=== PATIENT | female | born 1955 | race African-American/Black ===

== ENCOUNTER 2019-06-15 05:19 | Emergency (ER) | payer MEDICARE, OTHER ==
[~2019-06-15] VITALS: Ht 170.2 cm; Wt 73.0 kg
[2019-06-15] MEDS ORDERED: ONDANSETRON HCL 4MG/2ML INJ IV ONE (06:30)
[2019-06-15 07:35] LABS: CHLORIDE 103 mEq/L (98-107)
[2019-06-15 07:39] LABS: ETHANOL BLOOD < 10 mg/dL
[2019-06-15 07:41] LABS: BASOPHILS % 0.9 % (0.0-2.0); EOSINOPHILS % 0.1 % (0.0-5.0); HEMOGLOBIN. 11.2 g/dL (12.0-16.0); MEAN CORPUSCULAR HEMOGLOBIN 28.8 pg (28.0-32.0); MEAN PLATELET VOLUME 7.8 fl (7.4-10.4); MONOCYTES % 3.7 % (2.0-8.0); NEUTROPHILS % 82.3 % (40.0-76.0); PLATELET 194 x1000/uL (130-400); RED BLOOD CELL COUNT 3.91 mill/uL (4.2-5.4); RED CELL DISTRIBUTION WIDTH 14.5 % (11.6-14.6)
[2019-06-15] MEDS ORDERED: HYDRALAZINE 20MG/ML VIAL IV PRN (08:45)
[2019-06-15 08:57] LABS: CLARITY URINE CLOUDY (CLEAR); COLOR URINE YELLOW (YELLOW); KETONES URINE NEGATIVE (NEGATIVE); LEUKOCYTE ESTERASE URINE NEGATIVE (NEGATIVE); NITRITE URINE NEGATIVE (NEGATIVE); OCCULT BLOOD URINE TRACE (NEGATIVE); PH URINE >=9.0 (4.5-8.0); PROTEIN URINE 2+ (NEGATIVE); SPECIFIC GRAVITY URINE 1.011 (1.005-1.030); UROBILINOGEN URINE 0.2 E.U./dL (0.2-1.0)
[2019-06-15 09:15] LABS: *AMPHETAMINES SCREEN URINE NEGATIVE (NEGATIVE); *BARBITURATES SCREEN URINE NEGATIVE (NEGATIVE); *BENZODIAZEPINES SCREEN URINE NEGATIVE (NEGATIVE); *COCAINE SCREEN URINE NEGATIVE (NEGATIVE); METHADONE URINE SCREEN NEGATIVE (NEGATIVE)
[2019-06-15 09:16] LABS: CANNABINOID URINE SCREEN NEGATIVE (NEGATIVE); OPIATES URINE SCREEN NEGATIVE (NEGATIVE); PHENCYCLIDINE URINE SCREEN NEGATIVE (NEGATIVE)
[2019-06-15] MEDS ORDERED: LEVOTHYROXINE SODIUM 100MCG TABLET PO SCH (09:45)
[2019-06-15] MEDS ORDERED: CLONIDINE 0.1MG TABLET PO PRN (10:00)
[2019-06-15] MEDS ORDERED: NITROGLYCERIN 0.4MG TABLET SL SL PRN (10:00)
[2019-06-15] MEDS ORDERED: ONDANSETRON HCL 4MG/2ML INJ IV PRN (10:00)
[2019-06-15] MEDS ORDERED: ACETAMINOPHEN 325MG TABLET PO PRN (10:00)
[2019-06-15] MEDS ORDERED: GUAIFENESIN 200MG/10ML SUGAR FREE UDC PO PRN (10:00)
[2019-06-15] MEDS ORDERED: IPRATROPIUM/ALBUTEROL 0.5-3(2.5)MG/3ML NEB INH PRN (10:00)
[2019-06-15] MEDS ORDERED: ENOXAPARIN 40MG/0.4ML SYR SUBCUT SCH (10:00)
[2019-06-15] MEDS ORDERED: DEXTROSE 50% WATER 50ML SYRINGE IV PRN (10:00)
[2019-06-15] MEDS ORDERED: DIPHENHYDRAMINE 50MG/ML VIAL IV PRN (10:00)
[2019-06-15] MEDS ORDERED: MAGNESIUM/ALUMINUM HYDROXIDE/SIMETHICONE 30ML UDC PO PRN (10:00)
[2019-06-15 10:38] LABS: FOLIC ACID (FOLATE) SERUM >20 ng/mL ng/mL (>5.38)
[2019-06-15 10:49] LABS: VITAMIN B12 SERUM 816 pg/mL (211-911)
[2019-06-15 11:20] VITALS: BP 166/79
[2019-06-15] MEDS ORDERED: SEVELAMER CARBONATE 800 MG TABLET PO SCH (13:00)
[2019-06-15] MEDS ORDERED: BLOOD SUGAR DIAGNOSTIC STRIP TEST SCH (13:00)
[2019-06-15] MEDS ORDERED: INSULIN LISPRO 100 UNITS/ML SUBCUT SCH (13:20)
[2019-06-15] MEDS ORDERED: FAMOTIDINE 20MG TABLET PO SCH (21:00)
[2019-06-15] MEDS ORDERED: METOPROLOL TARTRATE 25MG TABLET PO SCH (21:00)
[2019-06-16] MEDS ORDERED: LEVOTHYROXINE SODIUM 100MCG TABLET PO SCH (07:50)
[2019-06-16] MEDS ORDERED: FOLIC ACID/VITAMIN B COMP W-C TABLET PO SCH (09:00)
[2019-06-16] MEDS ORDERED: ASPIRIN 325MG EC TABLET PO SCH (09:00)
[2019-06-16] MEDS ORDERED: AMLODIPINE 10MG TABLET PO SCH (09:00)
== END 2019-06-15 11:27 | disposition short-term general hospital (02) ==
LOC: ER 05:19 → SUPCPDRO 09:49 → ER 11:27
DX: R42 Dizziness and giddiness (principal); I12.0 Hypertensive chronic kidney disease with stage 5 chronic kidney disease or end stage renal disease; N18.6 End stage renal disease; E03.9 Hypothyroidism, unspecified; Z99.2 Dependence on renal dialysis
CPT/HCPCS: 36415; 70450; 70551; 71045; 80053; 80061; 80305; 80320; 81003; 82607; 82746; 83036; 84443; 85025; 93005; 93970; 96374; 99285; J2405; G0480

== ENCOUNTER 2020-04-07 20:20 | Emergency (ER) | payer MEDICARE, OTHER ==
[~2020-04-07] VITALS: Ht 162.6 cm; Wt 74.0 kg
[2020-04-07] MEDS ORDERED: HYDROCODONE/ACETAMINOPHEN 5/325MG TABLET PO ONE (20:45)
[2020-04-07] MEDS ORDERED: METOPROLOL TARTRATE 25MG TABLET PO ONE (21:15)
[2020-04-07] MEDS ORDERED: SODIUM CHLORIDE 0.9% 1,000 ML IV ONE (22:39)
[2020-04-07] MEDS ORDERED: MORPHINE SULFATE 4 MG/ML CPJ (NOT FOR IM USE) IV STA (22:39)
[2020-04-07] MEDS ORDERED: ONDANSETRON HCL 4MG/2ML INJ IV STA (22:39)
[2020-04-07] MEDS ORDERED: ETOMIDATE 2MG/ML 10ML VIAL IV ONE (22:45)
[2020-04-07] MEDS ORDERED: MORPHINE SULFATE 4 MG/ML CPJ (NOT FOR IM USE) IV ONE (22:45)
[2020-04-07 23:10] LABS: BASOPHILS % 0.9 % (0.0-2.0); EOSINOPHILS % 0.1 % (0.0-5.0); HEMOGLOBIN. 11.2 g/dL (12.0-16.0); LYMPHOCYTES % 10.2 % (20.0-50.0); MEAN CORPUSCULAR HEMOGLOBIN 29.5 pg (28.0-32.0); MEAN PLATELET VOLUME 7.7 fl (7.4-10.4); MONOCYTES % 7.8 % (2.0-8.0); PLATELET 241 x1000/uL (130-400); RED BLOOD CELL COUNT 3.79 mill/uL (4.2-5.4); RED CELL DISTRIBUTION WIDTH 14.7 % (11.6-14.6)
[2020-04-07 23:17] LABS: CHLORIDE 99 mEq/L (98-107)
[2020-04-07] MEDS ORDERED: HYDRALAZINE 20MG/ML VIAL IV ONE (23:30)
[2020-04-08 02:12] VITALS: BP 184/73
== END 2020-04-08 02:16 | disposition short-term general hospital (02) ==
LOC: ER 20:20
DX: S43.014A Anterior dislocation of right humerus, initial encounter (principal); I12.0 Hypertensive chronic kidney disease with stage 5 chronic kidney disease or end stage renal disease; E11.22 Type 2 diabetes mellitus with diabetic chronic kidney disease; N18.6 End stage renal disease; Z99.2 Dependence on renal dialysis; Z98.890 Other specified postprocedural states; W10.8XXA Fall (on) (from) other stairs and steps, initial encounter; Y93.89 Activity, other specified; Y92.89 Other specified places as the place of occurrence of the external cause; Y99.8 Other external cause status
CPT/HCPCS: 23650; 36415; 71045; 73030; 73060; 80053; 85025; 93005; 96360; 96374; 96375; 99152; 99285; J0360; J2270; J2405; J3490; J7030; L3670

== ENCOUNTER 2020-06-08 11:24 | Emergency (ER) | payer OTHER, MEDICARE ==
[~2020-06-08] VITALS: Ht 170.2 cm; Wt 68.0 kg
[2020-06-08 12:35] LABS: PARTIAL THROMBOPLASTIN TIME 23.4 sec (23.4-31.0); PROTHROMBIN TIME 10.5 sec (9.6-11.0)
[2020-06-08 12:40] LABS: HEMATOCRIT. 32.4 % (36.0-48.0); HEMOGLOBIN. 10.5 g/dL (12.0-16.0); LYMPHOCYTES % 23.2 % (20.0-50.0); MEAN CORPUSCULAR HEMOGLOBIN 28.2 pg (28.0-32.0); MEAN CORPUSCULAR VOLUME 87.4 fL (81.0-99.0); MEAN PLATELET VOLUME 7.3 fl (7.4-10.4); MONOCYTES % 8.3 % (2.0-8.0); NEUTROPHILS % 66.5 % (40.0-76.0); PLATELET 239 x1000/uL (130-400); RED CELL DISTRIBUTION WIDTH 15.2 % (11.6-14.6)
[2020-06-08 12:50] LABS: CHLORIDE 98 mEq/L (98-107)
[2020-06-08 16:05] VITALS: BP 158/61
== END 2020-06-08 16:37 | disposition short-term general hospital (02) ==
LOC: ER 11:24
DX: T82.41XA Breakdown (mechanical) of vascular dialysis catheter, initial encounter (principal); Y84.1 Kidney dialysis as the cause of abnormal reaction of the patient, or of later complication, without mention of misadventure at the time of the procedure; Y92.9 Unspecified place or not applicable; I12.0 Hypertensive chronic kidney disease with stage 5 chronic kidney disease or end stage renal disease; E11.22 Type 2 diabetes mellitus with diabetic chronic kidney disease; N18.6 End stage renal disease; Z99.2 Dependence on renal dialysis
CPT/HCPCS: 36415; 71045; 80053; 85025; 86850; 86900; 93005; 99285

== ENCOUNTER 2020-12-08 08:32 | Emergency (ER) | payer MEDICARE, OTHER ==
[~2020-12-08] VITALS: Ht 175.3 cm; Wt 63.0 kg
[2020-12-08 10:33] LABS: BASOPHILS % 1.1 % (0.0-2.0); EOSINOPHILS % 0.1 % (0.0-5.0); HEMATOCRIT. 33.7 % (36.0-48.0); HEMOGLOBIN. 10.7 g/dL (12.0-16.0); LYMPHOCYTES % 11.9 % (20.0-50.0); MEAN CORPUSCULAR HEMOGLOBIN 24.4 pg (28.0-32.0); MEAN CORPUSCULAR VOLUME 76.6 fL (81.0-99.0); MEAN PLATELET VOLUME 7.5 fl (7.4-10.4); MONOCYTES % 8.9 % (2.0-8.0); PLATELET 294 x1000/uL (130-400); RED CELL DISTRIBUTION WIDTH 21.1 % (11.6-14.6)
[2020-12-08 10:35] LABS: CHLORIDE 99 mEq/L (98-107)
[2020-12-08 10:38] LABS: INR 1.1; PROTHROMBIN TIME 11.2 sec (9.6-11.0)
[2020-12-08] MEDS ORDERED: DOCUSATE SODIUM 100MG CAPSULE PO PRN (12:45)
[2020-12-08] MEDS ORDERED: GUAIFENESIN 200MG/10ML SUGAR FREE UDC PO PRN (12:45)
[2020-12-08] MEDS ORDERED: DIPHENHYDRAMINE 50MG/ML VIAL IV PRN (12:45)
[2020-12-08] MEDS ORDERED: ACETAMINOPHEN 325MG TABLET PO PRN (12:45)
[2020-12-08] MEDS ORDERED: ONDANSETRON HCL 4MG/2ML INJ IV PRN (12:45)
[2020-12-08] MEDS ORDERED: CLONIDINE 0.1MG TABLET PO PRN (12:45)
[2020-12-08] MEDS ORDERED: MAGNESIUM/ALUMINUM HYDROXIDE/SIMETHICONE 30ML UDC PO PRN (12:45)
[2020-12-08] MEDS ORDERED: CALCIUM ACETATE 667MG CAPSULE PO SCH (13:00)
[2020-12-08] MEDS ORDERED: AMLODIPINE 10MG TABLET PO SCH (13:00)
[2020-12-08 14:35] VITALS: BP 178/89
[2020-12-09] MEDS ORDERED: FOLIC ACID/VITAMIN B COMP W-C TABLET PO SCH (09:00)
== END 2020-12-08 15:00 | disposition home or self-care (01) ==
LOC: ER 08:41 → EDBEDREQTM 11:44 → EDBEDREQ 11:44 → ER 15:00 → CANBEDREQ 12-09 09:14
DX: G93.40 Encephalopathy, unspecified (principal); I12.0 Hypertensive chronic kidney disease with stage 5 chronic kidney disease or end stage renal disease; I13.2 Hypertensive heart and chronic kidney disease with heart failure and with stage 5 chronic kidney disease, or end stage renal disease; N18.6 End stage renal disease; Z99.2 Dependence on renal dialysis; E11.22 Type 2 diabetes mellitus with diabetic chronic kidney disease; I50.33 Acute on chronic diastolic (congestive) heart failure; R11.2 Nausea with vomiting, unspecified; R55 Syncope and collapse; D63.1 Anemia in chronic kidney disease; R91.8 Other nonspecific abnormal finding of lung field; E43 Unspecified severe protein-calorie malnutrition; Z82.49 Family history of ischemic heart disease and other diseases of the circulatory system; W19.XXXA Unspecified fall, initial encounter
CPT/HCPCS: 36415; 71045; 80053; 83880; 84484; 85025; 93005; 99285

== ENCOUNTER 2021-02-15 08:59 | Emergency (ER) | payer MEDICARE, OTHER, MEDICAID ==
[~2021-02-15] VITALS: Ht 160 cm; Wt 55.0 kg
[2021-02-15] MEDS ORDERED: ONDANSETRON HCL 4MG/2ML INJ IV STA ×2 (09:13→11:32)
[2021-02-15] MEDS ORDERED: SODIUM CHLORIDE 0.9% 1,000 ML IV ONE (09:15)
[2021-02-15 10:15] LABS: HEMATOCRIT. 37.5 % (36.0-48.0); HEMOGLOBIN. 11.8 g/dL (12.0-16.0); MEAN CORPUSCULAR HEMOGLOBIN 26.2 pg (28.0-32.0); MEAN CORPUSCULAR VOLUME 83.2 fL (81.0-99.0); MEAN PLATELET VOLUME 8.8 fl (7.4-10.4); PLATELET 150 x1000/uL (130-400); RED CELL DISTRIBUTION WIDTH 20.2 % (11.6-14.6)
[2021-02-15 10:22] LABS: CHLORIDE 99 mEq/L (98-107)
[2021-02-15 10:25] LABS: PROTHROMBIN TIME 10.4 sec (9.6-11.0)
[2021-02-15] MEDS ORDERED: ONDA4TAB5 PO (12:16)
[2021-02-15 12:20] LABS: PLATELET ESTIMATE NORMAL
[2021-02-15 12:55] VITALS: BP 150/78
== END 2021-02-15 12:56 | disposition home or self-care (01) ==
LOC: ER 08:59
DX: R11.2 Nausea with vomiting, unspecified (principal); I12.0 Hypertensive chronic kidney disease with stage 5 chronic kidney disease or end stage renal disease; E11.22 Type 2 diabetes mellitus with diabetic chronic kidney disease; N18.6 End stage renal disease; Z99.2 Dependence on renal dialysis; Z85.43 Personal history of malignant neoplasm of ovary; Z92.21 Personal history of antineoplastic chemotherapy
CPT/HCPCS: 36415; 80053; 83690; 85025; 85610; 96361; 96374; 96376; 99285; C1893; J2405; J7030

== ENCOUNTER 2021-02-19 11:24 | Emergency (ER) | payer MEDICARE, OTHER, MEDICAID ==
[~2021-02-19] VITALS: Ht 167.6 cm; Wt 68.0 kg
[~2021-02-19 11:24] MED LIST: ONDA4TAB5 PO
[2021-02-19 12:41] LABS: CHLORIDE 100 mEq/L (98-107)
[2021-02-19 12:44] LABS: BASOPHILS % 0.2 % (0.0-2.0); EOSINOPHILS % 1.8 % (0.0-5.0); HEMATOCRIT. 40.4 % (36.0-48.0); HEMOGLOBIN. 12.5 g/dL (12.0-16.0); LYMPHOCYTES % 46.1 % (20.0-50.0); MEAN CORPUSCULAR HEMOGLOBIN 25.8 pg (28.0-32.0); MEAN CORPUSCULAR VOLUME 83.4 fL (81.0-99.0); MEAN PLATELET VOLUME 8.1 fl (7.4-10.4); MONOCYTES % 9.6 % (2.0-8.0); NEUTROPHILS % 42.3 % (40.0-76.0); PLATELET 215 x1000/uL (130-400); RED BLOOD CELL COUNT 4.84 mill/uL (4.2-5.4); RED CELL DISTRIBUTION WIDTH 20.3 % (11.6-14.6)
[2021-02-19 13:09] LABS: PLATELET ESTIMATE NORMAL
[2021-02-19] MEDS ORDERED: SODIUM CHLORIDE 0.9% 250 ML IV ONE (14:15)
[2021-02-19] MEDS ORDERED: ONDANSETRON HCL 4MG/2ML INJ IV ONE (14:15)
[2021-02-19 15:04] LABS: CLARITY URINE TURBID (CLEAR); COLOR URINE YELLOW (YELLOW); KETONES URINE TRACE (NEGATIVE); LEUKOCYTE ESTERASE URINE NEGATIVE (NEGATIVE); NITRITE URINE NEGATIVE (NEGATIVE); OCCULT BLOOD URINE NEGATIVE (NEGATIVE); PROTEIN URINE 2+ (NEGATIVE); SPECIFIC GRAVITY URINE 1.017 (1.005-1.030); UROBILINOGEN URINE 0.2 E.U./dL (0.2-1.0)
[2021-02-19 19:43] VITALS: BP 152/88
== END 2021-02-19 20:42 | disposition short-term general hospital (02) ==
LOC: ER 11:24
DX: R53.1 Weakness (principal); R11.2 Nausea with vomiting, unspecified; D70.9 Neutropenia, unspecified; E11.22 Type 2 diabetes mellitus with diabetic chronic kidney disease; I12.0 Hypertensive chronic kidney disease with stage 5 chronic kidney disease or end stage renal disease; N18.6 End stage renal disease; R41.0 Disorientation, unspecified; Z99.2 Dependence on renal dialysis
CPT/HCPCS: 36415; 70450; 71045; 74176; 80053; 81003; 83690; 83880; 84484; 85025; 87086; 93005; 96361; 96374; 99285; J2405

== ENCOUNTER 2021-02-28 23:43 | Emergency (ER) | payer OTHER, MEDICARE, MEDICAID ==
[~2021-02-28] VITALS: Ht 165.1 cm; Wt 66.0 kg
[2021-03-01] MEDS ORDERED: ONDANSETRON HCL 4MG/2ML INJ IV STA (01:00)
[2021-03-01 02:05] LABS: BG BASE EXCESS 1.2 mmol/L (-2.0-2.0); BG CARBOXYHEMOGLOBIN 0.8 % (0.5-1.5); BG DEOXYHEMOGLOBIN 3.9 % (0.0-5.0); BG FRACTION INSPIRED OXYGEN 21; BG OXYGEN SATURATION 96.1 % (92.0-98.5); BG OXYHEMOGLOBIN 95.3 % (94.0-97.0); BG PCO2 36.9 mmHg (35.0-45.0); BG PH 7.449 (7.350-7.450); BG SAMPLE SITE LEFT RADIAL; BG TOTAL HEMOGLOBIN 12.1 g/dL (12.0-18.0); BG VENT MODE ROOM AIR
[2021-03-01 02:16] LABS: CHLORIDE 95 mEq/L (98-107)
[2021-03-01 02:17] LABS: HEMATOCRIT. 39.8 % (36.0-48.0); HEMOGLOBIN. 12.4 g/dL (12.0-16.0); MEAN CORPUSCULAR HEMOGLOBIN 26.5 pg (28.0-32.0); MEAN CORPUSCULAR VOLUME 85.1 fL (81.0-99.0); PLATELET 143 x1000/uL (130-400); RED BLOOD CELL COUNT 4.67 mill/uL (4.2-5.4); RED CELL DISTRIBUTION WIDTH 20.8 % (11.6-14.6)
[2021-03-01 02:22] LABS: PHOSPHORUS 2.9 mg/dL (2.5-4.9)
[2021-03-01 02:26] LABS: PROTHROMBIN TIME 10.4 sec (9.6-11.0)
[2021-03-01 03:03] LABS: PLATELET ESTIMATE NORMAL
[2021-03-01 05:04] VITALS: BP 133/85
== END 2021-03-01 05:04 | disposition short-term general hospital (02) ==
LOC: ER 23:43 → CANBEDREQ 03-01 06:30
DX: R11.10 Vomiting, unspecified (principal); C56.9 Malignant neoplasm of unspecified ovary; I12.0 Hypertensive chronic kidney disease with stage 5 chronic kidney disease or end stage renal disease; N18.6 End stage renal disease; Z99.2 Dependence on renal dialysis; Z90.49 Acquired absence of other specified parts of digestive tract; Z92.21 Personal history of antineoplastic chemotherapy; Z90.710 Acquired absence of both cervix and uterus
CPT/HCPCS: 36415; 36600; 71045; 80053; 82375; 82805; 83735; 84100; 84484; 85025; 93005; 99285

== ENCOUNTER 2021-03-08 07:27 | Inpatient (IN) | payer MEDICARE, OTHER, MEDICAID ==
[~2021-03-08] VITALS: Ht 162.6 cm; Wt 73.0 kg
[2021-03-08] VITALS (38 sets, daily range): BP systolic 57–152; BP diastolic 22–80
[2021-03-08] MEDS ORDERED: PROPOFOL 10MG/ML 100ML 100 ML IV PRN (07:45)
[2021-03-08] MEDS ORDERED: NOREPINEPHRINE 8MG/250ML PMX 250 ML IV SCH (08:00)
[2021-03-08] MEDS ORDERED: ETOMIDATE 2MG/ML 10ML VIAL IV ONE (08:08)
[2021-03-08] MEDS ORDERED: ACETAMINOPHEN 650MG SUPP PR STA (08:10)
[2021-03-08] MEDS ORDERED: SODIUM CHLORIDE 0.9% 1000ML BAG (SEPSIS BOLUS) IV ONE (08:15)
[2021-03-08] MEDS ORDERED: PIPERACILLIN/TAZ 3.375G PREMIX 50 ML IV NR (08:15)
[2021-03-08] MEDS ORDERED: VANCOMYCIN 1 G PREMIX 200 ML IV ONE (08:15)
[2021-03-08] MEDS ORDERED: PIPERACILLIN/TAZ 3.375G PREMIX 50 ML IV ONE (08:15)
[2021-03-08] MEDS ORDERED: VANCOMYCIN 1 G PREMIX 200 ML IV NR (08:15)
[2021-03-08 08:45] LABS: BG BASE EXCESS -11.7 mmol/L (-2.0-2.0); BG CARBOXYHEMOGLOBIN 0.3 % (0.5-1.5); BG DEOXYHEMOGLOBIN 1.5 % (0.0-5.0); BG FRACTION INSPIRED OXYGEN 100; BG HCO3 ACT 13.1 mmol/L (22.0-26.0); BG OXYGEN SATURATION 98.5 % (92.0-98.5); BG OXYHEMOGLOBIN 98.2 % (94.0-97.0); BG PCO2 26.3 mmHg (35.0-45.0); BG PH 7.314 (7.350-7.450); BG PO2 142.7 mmHg (75.0-100.0); BG SAMPLE SITE RIGHT RADIAL; BG TOTAL HEMOGLOBIN 10.3 g/dL (12.0-18.0); BG VENT MODE VENT - AC
[2021-03-08 09:16] LABS: HEMATOCRIT. 33.3 % (36.0-48.0); HEMOGLOBIN. 10.1 g/dL (12.0-16.0); MEAN CORPUSCULAR HEMOGLOBIN 26.2 pg (28.0-32.0); MEAN CORPUSCULAR VOLUME 86.6 fL (81.0-99.0); MEAN PLATELET VOLUME 8.3 fl (7.4-10.4); PLATELET 219 x1000/uL (130-400); RED BLOOD CELL COUNT 3.85 mill/uL (4.2-5.4); RED CELL DISTRIBUTION WIDTH 20.8 % (11.6-14.6)
[2021-03-08 09:24] LABS: CHLORIDE 103 mEq/L (98-107)
[2021-03-08 09:25] LABS: PROTHROMBIN TIME 11.2 sec (9.6-11.0)
[2021-03-08] MEDS ORDERED: PIPERACILLIN/TAZ 3.375G PREMIX 50 ML IV SCH (10:00)
[2021-03-08] MEDS ORDERED: NOREPINEPHRINE 8 MG in DEXT 5% WATER 242 ML IV PRN (10:00)
[2021-03-08] MEDS ORDERED: ONDANSETRON HCL 4MG/2ML INJ IV PRN (10:00)
[2021-03-08] MEDS ORDERED: IPRATROPIUM/ALBUTEROL 0.5-3(2.5)MG/3ML NEB NEB PRN (10:00)
[2021-03-08] MEDS ORDERED: MAGNESIUM/ALUMINUM HYDROXIDE/SIMETHICONE 30ML UDC PO PRN (10:00)
[2021-03-08] MEDS ORDERED: GUAIFENESIN 200MG/10ML SUGAR FREE UDC PO PRN (10:00)
[2021-03-08] MEDS ORDERED: NITROGLYCERIN 0.4MG TABLET SL SL PRN (10:00)
[2021-03-08] MEDS ORDERED: CLONIDINE 0.1MG TABLET PO PRN (10:00)
[2021-03-08 10:12] LABS: PLATELET ESTIMATE NORMAL
[2021-03-08 10:23] LABS: T4 FREE 1.74 ng/dL (0.76-1.46)
[2021-03-08] MEDS ORDERED: SODIUM BICARBONATE 8.4% 1 MEQ/ML 50ML SYR IV NR (10:30)
[2021-03-08] MEDS ORDERED: SODIUM POLYSTYRENE SULFONATE 15 G/60 ML BOT PO NR (10:30)
[2021-03-08 10:32] LABS: CANNABINOID URINE SCREEN NEGATIVE (NEGATIVE)
[2021-03-08 10:33] LABS: *AMPHETAMINES SCREEN URINE NEGATIVE (NEGATIVE); *BARBITURATES SCREEN URINE NEGATIVE (NEGATIVE); *BENZODIAZEPINES SCREEN URINE PRESUMTIVE POSITIVE (NEGATIVE); *COCAINE SCREEN URINE NEGATIVE (NEGATIVE); METHADONE URINE SCREEN NEGATIVE (NEGATIVE); OPIATES URINE SCREEN PRESUMTIVE POSITIVE (NEGATIVE)
[2021-03-08 10:34] LABS: PHENCYCLIDINE URINE SCREEN NEGATIVE (NEGATIVE)
[2021-03-08 10:38] LABS: FOLIC ACID (FOLATE) SERUM >20 ng/mL ng/mL (>5.38)
[2021-03-08 10:49] LABS: VITAMIN B12 SERUM >2000 pg/mL pg/mL (211-911)
[2021-03-08] MEDS: PANTOPRAZOLE SODIUM 40 MG/VIAL IV SCH (10:50)
[2021-03-08] MEDS: ENOXAPARIN 30MG/0.3ML SYR SUBCUT SCH (10:54)
[2021-03-08] MEDS ORDERED: IPRATROPIUM/ALBUTEROL 0.5-3(2.5)MG/3ML NEB HHN SCH (12:00)
[2021-03-08 16:11] LABS: CREATINE KINASE MB FRACTION 2.1 ng/mL (0.5-3.6)
[2021-03-08] MEDS ORDERED: CINA30 PO (16:40)
[2021-03-08] MEDS ORDERED: SIMV-43 PO (16:40)
[2021-03-08] MEDS ORDERED: THIO300C PO (16:40)
[2021-03-08] MEDS ORDERED: LEVO100T9 PO (16:40)
[2021-03-08] MEDS ORDERED: FURO40TA5 MT (16:40)
[2021-03-08] MEDS: PHENYLEPHRINE 100 MG in DEXT 5% WATER 240 ML IV PRN (17:46)
[2021-03-08] MEDS: FENTANYL CITRATE/PF 2,500 MCG in SODIUM CHLORIDE 0.9% 200 ML IV PRN (17:46)
[2021-03-08] MEDS: VASOPRESSIN 20 UNIT in SODIUM CHLORIDE 0.9% 99 ML IV PRN (17:47)
[2021-03-08] MEDS: PIPERACILLIN/TAZOBACTAM 2.25 G in DEXTROSE 5% WATER 50 ML IV SCH (18:00)
[2021-03-08] MEDS: NOREPINEPHRINE 8 MG in DEXT 5% WATER 242 ML IV PRN (18:52)
[2021-03-08] MEDS: EPOETIN ALFA-EPBX 4,000 UNIT/ML VIAL SUBCUT SCH (23:04)
[2021-03-08 23:45] LABS: CREATINE KINASE MB FRACTION 2.8 ng/mL (0.5-3.6)
[2021-03-09] VITALS (97 sets, daily range): BP systolic 62–166; BP diastolic 26–84
[2021-03-09] MEDS: PIPERACILLIN/TAZOBACTAM 2.25 G in DEXTROSE 5% WATER 50 ML IV SCH ×4 (02:22→18:03)
[2021-03-09] MEDS: DOCUSATE SODIUM 100MG CAPSULE PO PRN (03:34)
[2021-03-09] MEDS: VASOPRESSIN 20 UNIT in SODIUM CHLORIDE 0.9% 99 ML IV PRN ×2 (03:34→10:33)
[2021-03-09] MEDS: PHENYLEPHRINE 100 MG in DEXT 5% WATER 240 ML IV PRN ×3 (03:36→18:46)
[2021-03-09 05:50] LABS: HEMATOCRIT. 31.5 % (36.0-48.0); HEMOGLOBIN. 9.6 g/dL (12.0-16.0); MEAN CORPUSCULAR HEMOGLOBIN 25.9 pg (28.0-32.0); MEAN PLATELET VOLUME 8.4 fl (7.4-10.4); PLATELET 231 x1000/uL (130-400); RED CELL DISTRIBUTION WIDTH 20.6 % (11.6-14.6)
[2021-03-09 05:52] LABS: CHLORIDE 99 mEq/L (98-107)
[2021-03-09 05:58] LABS: PHOSPHORUS 5.2 mg/dL (2.5-4.9)
[2021-03-09] MEDS: INSULIN LISPRO 100 UNITS/ML SUBCUT SCH ×3 (05:58→18:05)
[2021-03-09] MEDS ORDERED: DEXTROSE 50% WATER 50ML SYRINGE IV PRN (06:00)
[2021-03-09] MEDS: BLOOD SUGAR DIAGNOSTIC STRIP TEST SCH ×4 (06:02→21:56)
[2021-03-09] MEDS: LEVOTHYROXINE SODIUM 75MCG TABLET PO SCH (07:50)
[2021-03-09] MEDS: PANTOPRAZOLE SODIUM 40 MG/VIAL IV SCH (07:50)
[2021-03-09] MEDS: IPRATROPIUM BROMIDE (0.02%) 0.5MG/2.5ML NEB HHN SCH ×4 (07:59→21:27)
[2021-03-09 10:23] LABS: BG BASE EXCESS 0.6 mmol/L (-2.0-2.0); BG DEOXYHEMOGLOBIN 0.7 % (0.0-5.0); BG FRACTION INSPIRED OXYGEN 70; BG HCO3 ACT 22.1 mmol/L (22.0-26.0); BG METHEMOGLOBIN 0.2 % (0.0-1.5); BG OXYGEN SATURATION 99.3 % (92.0-98.5); BG OXYHEMOGLOBIN 99.1 % (94.0-97.0); BG PCO2 25.7 mmHg (35.0-45.0); BG PH 7.552 (7.350-7.450); BG PO2 327.6 mmHg (75.0-100.0); BG SAMPLE SITE RIGHT RADIAL; BG TOTAL HEMOGLOBIN 10.2 g/dL (12.0-18.0); BG VENT MODE VENT - AC
[2021-03-09] MEDS: ENOXAPARIN 30MG/0.3ML SYR SUBCUT SCH (10:31)
[2021-03-09] MEDS ORDERED: VANCOMYCIN 750 MG PREMIX 150 ML IV NR (12:30)
[2021-03-09 13:10] LABS: PLATELET ESTIMATE NORMAL
[2021-03-09] MEDS ORDERED: ENOXAPARIN 30MG/0.3ML SYR SUBCUT SCH (15:45)
[2021-03-09] MEDS: FENTANYL CITRATE/PF 2,500 MCG in SODIUM CHLORIDE 0.9% 200 ML IV PRN (15:52)
[2021-03-09] MEDS ORDERED: INSULIN LISPRO 100 UNITS/ML SUBCUT SCH (22:00)
[2021-03-10] VITALS (103 sets, daily range): BP systolic 84–161; BP diastolic 52–91
[2021-03-10] MEDS: IPRATROPIUM BROMIDE (0.02%) 0.5MG/2.5ML NEB HHN SCH ×6 (00:53→20:41)
[2021-03-10] MEDS: PIPERACILLIN/TAZOBACTAM 2.25 G in DEXTROSE 5% WATER 50 ML IV SCH ×3 (02:43→18:23)
[2021-03-10] MEDS: NOREPINEPHRINE 8 MG in DEXT 5% WATER 242 ML IV PRN (03:04)
[2021-03-10] MEDS: PHENYLEPHRINE 100 MG in DEXT 5% WATER 240 ML IV PRN ×3 (03:16→19:23)
[2021-03-10] MEDS: VASOPRESSIN 20 UNIT in SODIUM CHLORIDE 0.9% 99 ML IV PRN ×2 (03:17→19:22)
[2021-03-10 05:25] LABS: HEMATOCRIT. 28.8 % (36.0-48.0); MEAN CORPUSCULAR HEMOGLOBIN 26.1 pg (28.0-32.0); MEAN CORPUSCULAR VOLUME 83.6 fL (81.0-99.0); MEAN PLATELET VOLUME 8.7 fl (7.4-10.4); PLATELET 210 x1000/uL (130-400); RED BLOOD CELL COUNT 3.45 mill/uL (4.2-5.4); RED CELL DISTRIBUTION WIDTH 20.7 % (11.6-14.6)
[2021-03-10] MEDS: BLOOD SUGAR DIAGNOSTIC STRIP TEST SCH ×3 (06:28→17:15)
[2021-03-10] MEDS: INSULIN LISPRO 100 UNITS/ML SUBCUT SCH ×3 (06:52→18:28)
[2021-03-10 07:37] LABS: NUCLEATED RED BLOOD CELLS 4 /100 WBC; PLATELET ESTIMATE NORMAL
[2021-03-10 08:07] LABS: BG BASE EXCESS 3.4 mmol/L (-2.0-2.0); BG CARBOXYHEMOGLOBIN 1.4 % (0.5-1.5); BG DEOXYHEMOGLOBIN 1.1 % (0.0-5.0); BG FRACTION INSPIRED OXYGEN 40; BG HCO3 ACT 27.5 mmol/L (22.0-26.0); BG METHEMOGLOBIN 0.3 % (0.0-1.5); BG OXYGEN SATURATION 98.9 % (92.0-98.5); BG OXYHEMOGLOBIN 97.2 % (94.0-97.0); BG PCO2 39.7 mmHg (35.0-45.0); BG PH 7.458 (7.350-7.450); BG SAMPLE SITE RIGHT RADIAL; BG VENT MODE VENT - AC
[2021-03-10] MEDS: LEVOTHYROXINE SODIUM 75MCG TABLET PO SCH (08:33)
[2021-03-10] MEDS: ENOXAPARIN 60MG/0.6ML SYR SUBCUT SCH (08:34)
[2021-03-10] MEDS: PANTOPRAZOLE SODIUM 40 MG/VIAL IV SCH (08:34)
[2021-03-10] MEDS: ACETAMINOPHEN 325MG TABLET PO PRN (09:02)
[2021-03-11] VITALS (96 sets, daily range): BP systolic 71–129; BP diastolic 39–86
[2021-03-11] MEDS: IPRATROPIUM BROMIDE (0.02%) 0.5MG/2.5ML NEB HHN SCH ×7 (00:29→23:43)
[2021-03-11] MEDS: EPOETIN ALFA-EPBX 4,000 UNIT/ML VIAL SUBCUT SCH (01:35)
[2021-03-11] MEDS: INSULIN LISPRO 100 UNITS/ML SUBCUT SCH ×4 (01:40→18:09)
[2021-03-11] MEDS: PIPERACILLIN/TAZOBACTAM 2.25 G in DEXTROSE 5% WATER 50 ML IV SCH ×3 (01:55→18:08)
[2021-03-11] MEDS: PHENYLEPHRINE 100 MG in DEXT 5% WATER 240 ML IV PRN ×3 (04:04→21:38)
[2021-03-11] MEDS: VASOPRESSIN 20 UNIT in SODIUM CHLORIDE 0.9% 99 ML IV PRN ×3 (04:52→21:39)
[2021-03-11 05:52] LABS: BASOPHILS % 0.2 % (0.0-2.0); EOSINOPHILS % 0.4 % (0.0-5.0); HEMATOCRIT. 26.6 % (36.0-48.0); HEMOGLOBIN. 8.3 g/dL (12.0-16.0); LYMPHOCYTES % 12.4 % (20.0-50.0); MEAN CORPUSCULAR VOLUME 83.4 fL (81.0-99.0); MEAN PLATELET VOLUME 8.5 fl (7.4-10.4); MONOCYTES % 8.8 % (2.0-8.0); NEUTROPHILS % 78.2 % (40.0-76.0); PLATELET 166 x1000/uL (130-400); RED BLOOD CELL COUNT 3.19 mill/uL (4.2-5.4); RED CELL DISTRIBUTION WIDTH 20.8 % (11.6-14.6)
[2021-03-11 05:58] LABS: CHLORIDE 100 mEq/L (98-107)
[2021-03-11] MEDS: BLOOD SUGAR DIAGNOSTIC STRIP TEST SCH ×4 (06:22→18:08)
[2021-03-11] MEDS: PANTOPRAZOLE SODIUM 40 MG/VIAL IV SCH (08:55)
[2021-03-11] MEDS: LEVOTHYROXINE SODIUM 75MCG TABLET PO SCH (08:55)
[2021-03-11] MEDS: ENOXAPARIN 60MG/0.6ML SYR SUBCUT SCH (08:56)
[2021-03-11] MEDS: POTASSIUM CHLORIDE 20MEQ TABLET SR PO NR ×2 (08:59→09:29)
[2021-03-11] MEDS: INSULIN GLARGINE UD 100 UNITS/ML SYR SUBCUT SCH (09:08)
[2021-03-11 09:32] LABS: BG BASE EXCESS 1.8 mmol/L (-2.0-2.0); BG CARBOXYHEMOGLOBIN 0.6 % (0.5-1.5); BG DEOXYHEMOGLOBIN 0.8 % (0.0-5.0); BG FRACTION INSPIRED OXYGEN 40; BG METHEMOGLOBIN 0.3 % (0.0-1.5); BG OXYGEN SATURATION 99.2 % (92.0-98.5); BG OXYHEMOGLOBIN 98.3 % (94.0-97.0); BG PCO2 39.1 mmHg (35.0-45.0); BG PH 7.441 (7.350-7.450); BG PO2 179.5 mmHg (75.0-100.0); BG SAMPLE SITE RIGHT RADIAL; BG TOTAL HEMOGLOBIN 8.6 g/dL (12.0-18.0); BG VENT MODE VENT - AC
[2021-03-11] MEDS ORDERED: POTASSIUM CHLORIDE INJ 40 MEQ in DEXT 5% WATER 500 ML IV ONE (10:00)
[2021-03-11] MEDS ORDERED: POTASSIUM CHLORIDE 20MEQ/PACKET PO NR (10:00)
[2021-03-11] MEDS: ACETAMINOPHEN 325MG TABLET PO PRN (12:36)
[2021-03-12] VITALS (95 sets, daily range): BP systolic 82–130; BP diastolic 40–92
[2021-03-12] MEDS: PIPERACILLIN/TAZOBACTAM 2.25 G in DEXTROSE 5% WATER 50 ML IV SCH ×4 (02:55→21:48)
[2021-03-12] MEDS: INSULIN LISPRO 100 UNITS/ML SUBCUT SCH ×5 (02:57→18:15)
[2021-03-12] MEDS: IPRATROPIUM BROMIDE (0.02%) 0.5MG/2.5ML NEB HHN SCH ×5 (03:19→19:57)
[2021-03-12 04:35] LABS: HEMOGLOBIN. 7.9 g/dL (12.0-16.0); MEAN CORPUSCULAR HEMOGLOBIN 25.8 pg (28.0-32.0); MEAN CORPUSCULAR VOLUME 85.1 fL (81.0-99.0); MEAN PLATELET VOLUME 9.6 fl (7.4-10.4); PLATELET 162 x1000/uL (130-400); RED BLOOD CELL COUNT 3.06 mill/uL (4.2-5.4); RED CELL DISTRIBUTION WIDTH 20.8 % (11.6-14.6)
[2021-03-12 04:47] LABS: PHOSPHORUS 3.4 mg/dL (2.5-4.9)
[2021-03-12] MEDS: BLOOD SUGAR DIAGNOSTIC STRIP TEST SCH ×4 (05:54→18:15)
[2021-03-12] MEDS: PHENYLEPHRINE 100 MG in DEXT 5% WATER 240 ML IV PRN ×3 (06:09→23:05)
[2021-03-12] MEDS: VASOPRESSIN 20 UNIT in SODIUM CHLORIDE 0.9% 99 ML IV PRN ×4 (06:10→21:50)
[2021-03-12] MEDS: ACETAMINOPHEN 325MG TABLET PO PRN (07:18)
[2021-03-12] MEDS: PANTOPRAZOLE SODIUM 40 MG/VIAL IV SCH (08:02)
[2021-03-12] MEDS: ENOXAPARIN 60MG/0.6ML SYR SUBCUT SCH (08:02)
[2021-03-12] MEDS: LEVOTHYROXINE SODIUM 75MCG TABLET PO SCH (08:02)
[2021-03-12 08:10] LABS: BG BASE EXCESS -0.4 mmol/L (-2.0-2.0); BG CARBOXYHEMOGLOBIN 0.8 % (0.5-1.5); BG DEOXYHEMOGLOBIN 4.5 % (0.0-5.0); BG FRACTION INSPIRED OXYGEN 30; BG HCO3 ACT 24.3 mmol/L (22.0-26.0); BG METHEMOGLOBIN 0.3 % (0.0-1.5); BG OXYGEN SATURATION 95.4 % (92.0-98.5); BG OXYHEMOGLOBIN 94.4 % (94.0-97.0); BG PCO2 40.2 mmHg (35.0-45.0); BG PO2 79.2 mmHg (75.0-100.0); BG SAMPLE SITE RIGHT RADIAL; BG VENT MODE VENT - APRV
[2021-03-12] MEDS ORDERED: VANCOMYCIN 750 MG PREMIX 150 ML IV SCH (09:00)
[2021-03-12] MEDS ORDERED: PAMIDRONATE DISODIUM 60 MG in SODIUM CHLORIDE 0.9% 500 ML IV ONE (10:30)
[2021-03-12] MEDS: INSULIN GLARGINE UD 100 UNITS/ML SYR SUBCUT SCH (10:45)
[2021-03-12 14:12] LABS: NUCLEATED RED BLOOD CELLS 11 /100 WBC
[2021-03-12 14:14] LABS: PLATELET ESTIMATE NORMAL
[2021-03-13] VITALS (94 sets, daily range): BP systolic 72–125; BP diastolic 43–87
[2021-03-13] MEDS: IPRATROPIUM BROMIDE (0.02%) 0.5MG/2.5ML NEB HHN SCH ×6 (00:12→20:55)
[2021-03-13] MEDS: BLOOD SUGAR DIAGNOSTIC STRIP TEST SCH ×3 (00:35→17:41)
[2021-03-13] MEDS: INSULIN LISPRO 100 UNITS/ML SUBCUT SCH ×3 (00:36→17:41)
[2021-03-13] MEDS: PIPERACILLIN/TAZOBACTAM 2.25 G in DEXTROSE 5% WATER 50 ML IV SCH ×3 (03:23→17:49)
[2021-03-13 05:36] LABS: HEMATOCRIT. 24.9 % (36.0-48.0); HEMOGLOBIN. 7.7 g/dL (12.0-16.0); MEAN CORPUSCULAR HEMOGLOBIN 26.4 pg (28.0-32.0); MEAN CORPUSCULAR VOLUME 84.8 fL (81.0-99.0); MEAN PLATELET VOLUME 9.8 fl (7.4-10.4); PLATELET 168 x1000/uL (130-400); RED BLOOD CELL COUNT 2.93 mill/uL (4.2-5.4); RED CELL DISTRIBUTION WIDTH 20.7 % (11.6-14.6)
[2021-03-13 05:54] LABS: PHOSPHORUS 3.2 mg/dL (2.5-4.9)
[2021-03-13] MEDS: VASOPRESSIN 20 UNIT in SODIUM CHLORIDE 0.9% 99 ML IV PRN ×2 (07:00→16:17)
[2021-03-13 08:51] LABS: BG BASE EXCESS -0.4 mmol/L (-2.0-2.0); BG CARBOXYHEMOGLOBIN 0.3 % (0.5-1.5); BG DEOXYHEMOGLOBIN 3.1 % (0.0-5.0); BG FRACTION INSPIRED OXYGEN 30; BG METHEMOGLOBIN 0.4 % (0.0-1.5); BG OXYGEN SATURATION 96.9 % (92.0-98.5); BG OXYHEMOGLOBIN 96.2 % (94.0-97.0); BG PCO2 38.3 mmHg (35.0-45.0); BG PH 7.415 (7.350-7.450); BG PO2 91.6 mmHg (75.0-100.0); BG SAMPLE SITE RIGHT RADIAL; BG VENT MODE VENT - AC
[2021-03-13] MEDS: PANTOPRAZOLE SODIUM 40 MG/VIAL IV SCH (09:55)
[2021-03-13] MEDS: LEVOTHYROXINE SODIUM 75MCG TABLET PO SCH (09:55)
[2021-03-13] MEDS: ENOXAPARIN 60MG/0.6ML SYR SUBCUT SCH (09:55)
[2021-03-13] MEDS: INSULIN GLARGINE UD 100 UNITS/ML SYR SUBCUT SCH (09:55)
[2021-03-13] MEDS ORDERED: CINACALCET HCL 30MG TABLET PO SCH (10:00)
[2021-03-13 11:13] LABS: NUCLEATED RED BLOOD CELLS 3 /100 WBC; PLATELET ESTIMATE NORMAL
[2021-03-13] MEDS: PHENYLEPHRINE 100 MG in DEXT 5% WATER 240 ML IV PRN ×2 (11:56→22:21)
[2021-03-13] MEDS ORDERED: [UNRECOGNIZED DRUG - REMARK] XX SCH (13:15)
[2021-03-13] MEDS: EPOETIN ALFA-EPBX 4,000 UNIT/ML VIAL SUBCUT SCH (22:20)
[2021-03-14] VITALS (94 sets, daily range): BP systolic 83–123; BP diastolic 45–89
[2021-03-14] MEDS: BLOOD SUGAR DIAGNOSTIC STRIP TEST SCH ×5 (00:29→23:52)
[2021-03-14] MEDS: INSULIN LISPRO 100 UNITS/ML SUBCUT SCH ×5 (00:31→23:55)
[2021-03-14] MEDS: IPRATROPIUM BROMIDE (0.02%) 0.5MG/2.5ML NEB HHN SCH ×6 (00:48→20:39)
[2021-03-14] MEDS: VASOPRESSIN 20 UNIT in SODIUM CHLORIDE 0.9% 99 ML IV PRN (00:51)
[2021-03-14] MEDS: PIPERACILLIN/TAZOBACTAM 2.25 G in DEXTROSE 5% WATER 50 ML IV SCH ×3 (05:25→17:20)
[2021-03-14 05:48] LABS: HEMATOCRIT. 24.2 % (36.0-48.0); HEMOGLOBIN. 7.4 g/dL (12.0-16.0); MEAN CORPUSCULAR HEMOGLOBIN 26.1 pg (28.0-32.0); MEAN CORPUSCULAR VOLUME 85.2 fL (81.0-99.0); MEAN PLATELET VOLUME 9.9 fl (7.4-10.4); PLATELET 158 x1000/uL (130-400); RED BLOOD CELL COUNT 2.84 mill/uL (4.2-5.4); RED CELL DISTRIBUTION WIDTH 20.5 % (11.6-14.6)
[2021-03-14] MEDS ORDERED: POTASSIUM CHLORIDE 20MEQ/PACKET NG SCH ×2 (07:00→11:00)
[2021-03-14] MEDS: PHENYLEPHRINE 100 MG in DEXT 5% WATER 240 ML IV PRN ×2 (07:14→17:21)
[2021-03-14] MEDS: PANTOPRAZOLE SODIUM 40 MG/VIAL IV SCH (08:37)
[2021-03-14] MEDS: ENOXAPARIN 60MG/0.6ML SYR SUBCUT SCH (08:37)
[2021-03-14] MEDS: LEVOTHYROXINE SODIUM 75MCG TABLET PO SCH (08:37)
[2021-03-14 08:59] LABS: BG BASE EXCESS 0.5 mmol/L (-2.0-2.0); BG CARBOXYHEMOGLOBIN 0.3 % (0.5-1.5); BG DEOXYHEMOGLOBIN 1.7 % (0.0-5.0); BG FRACTION INSPIRED OXYGEN 30; BG HCO3 ACT 24.6 mmol/L (22.0-26.0); BG METHEMOGLOBIN 0.3 % (0.0-1.5); BG OXYGEN SATURATION 98.3 % (92.0-98.5); BG OXYHEMOGLOBIN 97.7 % (94.0-97.0); BG PCO2 37.1 mmHg (35.0-45.0); BG PO2 123.8 mmHg (75.0-100.0); BG SAMPLE SITE RIGHT RADIAL; BG TOTAL HEMOGLOBIN 8.3 g/dL (12.0-18.0); BG VENT MODE VENT - AC
[2021-03-14] MEDS: INSULIN GLARGINE UD 100 UNITS/ML SYR SUBCUT SCH (10:00)
[2021-03-14] MEDS: CLOPIDOGREL 75MG TABLET NG SCH (18:23)
[2021-03-14] MEDS: ACETAMINOPHEN 325MG TABLET PO PRN (23:57)
[2021-03-15] VITALS (104 sets, daily range): BP systolic 51–145; BP diastolic 23–87
[2021-03-15] MEDS: IPRATROPIUM BROMIDE (0.02%) 0.5MG/2.5ML NEB HHN SCH ×6 (00:30→20:10)
[2021-03-15 02:34] LABS: PLATELET ESTIMATE NORMAL
[2021-03-15] MEDS: PIPERACILLIN/TAZOBACTAM 2.25 G in DEXTROSE 5% WATER 50 ML IV SCH ×3 (02:36→18:48)
[2021-03-15] MEDS ORDERED: AMIODARONE HCL 900 MG in DEXT 5% WATER 482 ML IV PRN (03:00)
[2021-03-15] MEDS ORDERED: AMIODARONE HCL 50MG/ML 3ML VIAL IV SCH (03:00)
[2021-03-15] MEDS ORDERED: AMIODARONE HCL IV SCH (03:15)
[2021-03-15] MEDS ORDERED: WATER IV SCH (03:15)
[2021-03-15] MEDS ORDERED: DEXTROSE 5% IV SCH (03:15)
[2021-03-15] MEDS: VASOPRESSIN 20 UNIT in SODIUM CHLORIDE 0.9% 99 ML IV PRN ×2 (06:30→16:15)
[2021-03-15] MEDS: INSULIN LISPRO 100 UNITS/ML SUBCUT SCH ×3 (06:34→18:47)
[2021-03-15] MEDS: BLOOD SUGAR DIAGNOSTIC STRIP TEST SCH ×3 (06:35→18:42)
[2021-03-15] MEDS: PHENYLEPHRINE 100 MG in DEXT 5% WATER 240 ML IV PRN ×2 (07:43→17:00)
[2021-03-15] MEDS: LEVOTHYROXINE SODIUM 75MCG TABLET PO SCH (08:51)
[2021-03-15] MEDS: THIAMINE HCL 100MG TABLET PO SCH (08:51)
[2021-03-15] MEDS: DOCUSATE SODIUM 100MG CAPSULE PO PRN (08:51)
[2021-03-15] MEDS: CLOPIDOGREL 75MG TABLET NG SCH (08:51)
[2021-03-15] MEDS: PANTOPRAZOLE SODIUM 40 MG/VIAL IV SCH (08:51)
[2021-03-15] MEDS: FOLIC ACID 1MG TABLET PO SCH (08:51)
[2021-03-15] MEDS: ENOXAPARIN 60MG/0.6ML SYR SUBCUT SCH (08:58)
[2021-03-15] MEDS: INSULIN GLARGINE UD 100 UNITS/ML SYR SUBCUT SCH (10:32)
[2021-03-15 10:52] LABS: PHOSPHORUS 2.5 mg/dL (2.5-4.9)
[2021-03-15 13:17] LABS: HEMATOCRIT. 22.9 % (36.0-48.0); HEMOGLOBIN. 7.5 g/dL (12.0-16.0); MEAN CORPUSCULAR HEMOGLOBIN 27.7 pg (28.0-32.0); MEAN CORPUSCULAR VOLUME 84.8 fL (81.0-99.0); MEAN PLATELET VOLUME 10.3 fl (7.4-10.4); PLATELET 152 x1000/uL (130-400); RED CELL DISTRIBUTION WIDTH 21.1 % (11.6-14.6)
[2021-03-15] MEDS ORDERED: LIDOCAINE HCL 1% 20ML VIAL (Pyxis) INJ ONE (13:29)
[2021-03-15 14:18] LABS: ATYPICAL LYMPHOCYTES 1; NUCLEATED RED BLOOD CELLS 5 /100 WBC; PLATELET ESTIMATE NORMAL
[2021-03-15] MEDS ORDERED: VANCOMYCIN 750 MG PREMIX 150 ML IV SCH (17:00)
[2021-03-16] VITALS (106 sets, daily range): BP systolic 77–152; BP diastolic 32–92
[2021-03-16] MEDS: IPRATROPIUM BROMIDE (0.02%) 0.5MG/2.5ML NEB HHN SCH ×6 (00:18→20:23)
[2021-03-16] MEDS: BLOOD SUGAR DIAGNOSTIC STRIP TEST SCH ×4 (00:22→18:04)
[2021-03-16] MEDS: INSULIN LISPRO 100 UNITS/ML SUBCUT SCH ×4 (00:22→17:53)
[2021-03-16] MEDS: PHENYLEPHRINE 100 MG in DEXT 5% WATER 240 ML IV PRN ×2 (02:49→12:52)
[2021-03-16 05:47] LABS: HEMATOCRIT. 21.9 % (36.0-48.0); MEAN CORPUSCULAR HEMOGLOBIN 27.1 pg (28.0-32.0); MEAN CORPUSCULAR VOLUME 84.8 fL (81.0-99.0); MEAN PLATELET VOLUME 10.8 fl (7.4-10.4); PLATELET 180 x1000/uL (130-400); RED BLOOD CELL COUNT 2.58 mill/uL (4.2-5.4); RED CELL DISTRIBUTION WIDTH 21.2 % (11.6-14.6)
[2021-03-16 05:58] LABS: PHOSPHORUS 2.2 mg/dL (2.5-4.9)
[2021-03-16] MEDS: PANTOPRAZOLE SODIUM 40 MG/VIAL IV SCH (08:06)
[2021-03-16] MEDS: THIAMINE HCL 100MG TABLET PO SCH (08:06)
[2021-03-16] MEDS: CLOPIDOGREL 75MG TABLET NG SCH (08:06)
[2021-03-16] MEDS: FOLIC ACID 1MG TABLET PO SCH (08:06)
[2021-03-16] MEDS: LEVOTHYROXINE SODIUM 75MCG TABLET PO SCH (08:06)
[2021-03-16] MEDS: ENOXAPARIN 60MG/0.6ML SYR SUBCUT SCH (08:07)
[2021-03-16] MEDS: AMIODARONE HCL 200 MG TABLET PO SCH ×2 (09:58→20:02)
[2021-03-16] MEDS: INSULIN GLARGINE UD 100 UNITS/ML SYR SUBCUT SCH (09:59)
[2021-03-16] MEDS: POTASSIUM-SODIUM PHOSPHATE POWDER PACKET PO SCH ×2 (11:10→17:52)
[2021-03-16 14:53] LABS: NUCLEATED RED BLOOD CELLS 10 /100 WBC
[2021-03-16 14:55] LABS: PLATELET ESTIMATE NORMAL
[2021-03-16] MEDS: PIPERACILLIN/TAZOBACTAM 2.25 G in DEXTROSE 5% WATER 50 ML IV SCH (17:53)
[2021-03-16] MEDS: ACETAMINOPHEN 325MG TABLET PO PRN (20:02)
[2021-03-16 21:19] LABS: HEMATOCRIT. 29.7 % (36.0-48.0); HEMOGLOBIN. 9.7 g/dL (12.0-16.0); MEAN CORPUSCULAR VOLUME 85.4 fL (81.0-99.0); MEAN PLATELET VOLUME 10.7 fl (7.4-10.4); PLATELET 224 x1000/uL (130-400); RED BLOOD CELL COUNT 3.47 mill/uL (4.2-5.4); RED CELL DISTRIBUTION WIDTH 19.7 % (11.6-14.6)
[2021-03-16 21:59] LABS: NUCLEATED RED BLOOD CELLS 2 /100 WBC; PLATELET ESTIMATE NORMAL
[2021-03-17] VITALS (86 sets, daily range): BP systolic 93–135; BP diastolic 32–81
[2021-03-17] MEDS: IPRATROPIUM BROMIDE (0.02%) 0.5MG/2.5ML NEB HHN SCH ×6 (00:23→20:57)
[2021-03-17] MEDS: BLOOD SUGAR DIAGNOSTIC STRIP TEST SCH ×4 (00:47→18:11)
[2021-03-17] MEDS: INSULIN LISPRO 100 UNITS/ML SUBCUT SCH ×4 (00:48→18:10)
[2021-03-17] MEDS: PHENYLEPHRINE 100 MG in DEXT 5% WATER 240 ML IV PRN ×3 (01:00→17:24)
[2021-03-17] MEDS: PIPERACILLIN/TAZOBACTAM 2.25 G in DEXTROSE 5% WATER 50 ML IV SCH ×3 (04:39→17:23)
[2021-03-17] MEDS: ACETAMINOPHEN 325MG TABLET PO PRN ×2 (05:58→11:44)
[2021-03-17 06:42] LABS: HEMATOCRIT. 29.5 % (36.0-48.0); HEMOGLOBIN. 9.4 g/dL (12.0-16.0); MEAN CORPUSCULAR HEMOGLOBIN 27.4 pg (28.0-32.0); MEAN CORPUSCULAR VOLUME 85.9 fL (81.0-99.0); MEAN PLATELET VOLUME 10.5 fl (7.4-10.4); PLATELET 244 x1000/uL (130-400); RED BLOOD CELL COUNT 3.43 mill/uL (4.2-5.4); RED CELL DISTRIBUTION WIDTH 19.5 % (11.6-14.6)
[2021-03-17 06:54] LABS: PHOSPHORUS 3.4 mg/dL (2.5-4.9)
[2021-03-17] MEDS: LEVOTHYROXINE SODIUM 75MCG TABLET PO SCH (06:54)
[2021-03-17 08:58] LABS: BG BASE EXCESS -0.3 mmol/L (-2.0-2.0); BG CARBOXYHEMOGLOBIN 0.3 % (0.5-1.5); BG DEOXYHEMOGLOBIN 1.5 % (0.0-5.0); BG FRACTION INSPIRED OXYGEN 30; BG HCO3 ACT 22.6 mmol/L (22.0-26.0); BG METHEMOGLOBIN 0.3 % (0.0-1.5); BG OXYGEN SATURATION 98.5 % (92.0-98.5); BG OXYHEMOGLOBIN 97.9 % (94.0-97.0); BG PCO2 30.8 mmHg (35.0-45.0); BG PH 7.483 (7.350-7.450); BG PO2 136.3 mmHg (75.0-100.0); BG SAMPLE SITE RIGHT RADIAL; BG TOTAL HEMOGLOBIN 10.3 g/dL (12.0-18.0); BG VENT MODE VENT - AC
[2021-03-17] MEDS: PANTOPRAZOLE SODIUM 40 MG/VIAL IV SCH (09:23)
[2021-03-17] MEDS: AMIODARONE HCL 200 MG TABLET PO SCH ×2 (09:24→21:09)
[2021-03-17] MEDS: FOLIC ACID 1MG TABLET PO SCH (09:24)
[2021-03-17] MEDS: CLOPIDOGREL 75MG TABLET NG SCH (09:24)
[2021-03-17] MEDS: THIAMINE HCL 100MG TABLET PO SCH (09:24)
[2021-03-17] MEDS: ENOXAPARIN 60MG/0.6ML SYR SUBCUT SCH (09:26)
[2021-03-17] MEDS: POTASSIUM-SODIUM PHOSPHATE POWDER PACKET PO SCH ×2 (09:30→17:23)
[2021-03-17] MEDS: INSULIN GLARGINE UD 100 UNITS/ML SYR SUBCUT SCH (09:34)
[2021-03-17 10:47] LABS: NUCLEATED RED BLOOD CELLS 2 /100 WBC; PLATELET ESTIMATE NORMAL
[2021-03-17] MEDS: MIDODRINE HCL 5MG TABLET PO SCH ×2 (12:08→17:21)
[2021-03-18] VITALS (99 sets, daily range): BP systolic 48–165; BP diastolic 19–95
[2021-03-18] MEDS: BLOOD SUGAR DIAGNOSTIC STRIP TEST SCH ×5 (00:09→23:29)
[2021-03-18] MEDS: ACETAMINOPHEN 325MG TABLET PO PRN (00:12)
[2021-03-18] MEDS: IPRATROPIUM BROMIDE (0.02%) 0.5MG/2.5ML NEB HHN SCH ×6 (00:29→20:28)
[2021-03-18] MEDS: PIPERACILLIN/TAZOBACTAM 2.25 G in DEXTROSE 5% WATER 50 ML IV SCH ×3 (01:23→17:34)
[2021-03-18] MEDS: INSULIN LISPRO 100 UNITS/ML SUBCUT SCH ×5 (05:34→23:33)
[2021-03-18] MEDS: PHENYLEPHRINE 100 MG in DEXT 5% WATER 240 ML IV PRN ×2 (05:37→14:05)
[2021-03-18 06:16] LABS: HEMATOCRIT. 29.4 % (36.0-48.0); HEMOGLOBIN. 9.4 g/dL (12.0-16.0); MEAN CORPUSCULAR HEMOGLOBIN 27.5 pg (28.0-32.0); PLATELET 274 x1000/uL (130-400); RED BLOOD CELL COUNT 3.42 mill/uL (4.2-5.4); RED CELL DISTRIBUTION WIDTH 19.4 % (11.6-14.6)
[2021-03-18] MEDS: ENOXAPARIN 60MG/0.6ML SYR SUBCUT SCH (08:19)
[2021-03-18] MEDS: MIDODRINE HCL 5MG TABLET PO SCH ×3 (08:21→17:35)
[2021-03-18] MEDS: FOLIC ACID 1MG TABLET PO SCH (08:21)
[2021-03-18] MEDS: AMIODARONE HCL 200 MG TABLET PO SCH ×2 (08:21→20:34)
[2021-03-18] MEDS: LEVOTHYROXINE SODIUM 75MCG TABLET PO SCH (08:21)
[2021-03-18] MEDS: CLOPIDOGREL 75MG TABLET NG SCH (08:21)
[2021-03-18] MEDS: THIAMINE HCL 100MG TABLET PO SCH (08:21)
[2021-03-18] MEDS: PANTOPRAZOLE SODIUM 40 MG/VIAL IV SCH (08:22)
[2021-03-18 09:11] LABS: BG BASE EXCESS 1.2 mmol/L (-2.0-2.0); BG CARBOXYHEMOGLOBIN 0.7 % (0.5-1.5); BG DEOXYHEMOGLOBIN 1.5 % (0.0-5.0); BG FRACTION INSPIRED OXYGEN 30; BG METHEMOGLOBIN 0.1 % (0.0-1.5); BG OXYGEN SATURATION 98.5 % (92.0-98.5); BG OXYHEMOGLOBIN 97.7 % (94.0-97.0); BG PH 7.493 (7.350-7.450); BG PO2 131.7 mmHg (75.0-100.0); BG SAMPLE SITE RIGHT RADIAL; BG TOTAL RESPIRATORY RATE 14 b/min; BG VENT MODE VENT - AC
[2021-03-18] MEDS: INSULIN GLARGINE UD 100 UNITS/ML SYR SUBCUT SCH (10:11)
[2021-03-18 14:27] LABS: NUCLEATED RED BLOOD CELLS 1 /100 WBC; PLATELET ESTIMATE NORMAL
[2021-03-19] VITALS (101 sets, daily range): BP systolic 110–154; BP diastolic 57–96
[2021-03-19] MEDS: ACETAMINOPHEN 325MG TABLET PO PRN (00:19)
[2021-03-19] MEDS: IPRATROPIUM BROMIDE (0.02%) 0.5MG/2.5ML NEB HHN SCH ×6 (00:23→20:36)
[2021-03-19] MEDS: PIPERACILLIN/TAZOBACTAM 2.25 G in DEXTROSE 5% WATER 50 ML IV SCH ×3 (01:35→17:36)
[2021-03-19] MEDS: PHENYLEPHRINE 100 MG in DEXT 5% WATER 240 ML IV PRN (05:00)
[2021-03-19] MEDS: BLOOD SUGAR DIAGNOSTIC STRIP TEST SCH ×3 (05:53→17:36)
[2021-03-19] MEDS: INSULIN LISPRO 100 UNITS/ML SUBCUT SCH ×3 (05:56→17:36)
[2021-03-19 06:25] LABS: HEMATOCRIT. 27.5 % (36.0-48.0); HEMOGLOBIN. 8.9 g/dL (12.0-16.0); MEAN CORPUSCULAR HEMOGLOBIN 27.9 pg (28.0-32.0); MEAN PLATELET VOLUME 10.2 fl (7.4-10.4); PLATELET 243 x1000/uL (130-400); RED CELL DISTRIBUTION WIDTH 20.5 % (11.6-14.6)
[2021-03-19] MEDS: LEVOTHYROXINE SODIUM 75MCG TABLET PO SCH (08:07)
[2021-03-19] MEDS: THIAMINE HCL 100MG TABLET PO SCH (08:07)
[2021-03-19] MEDS: CLOPIDOGREL 75MG TABLET NG SCH (08:07)
[2021-03-19] MEDS: MIDODRINE HCL 5MG TABLET PO SCH (08:07)
[2021-03-19] MEDS: FOLIC ACID 1MG TABLET PO SCH (08:07)
[2021-03-19] MEDS: AMIODARONE HCL 200 MG TABLET PO SCH ×2 (08:10→21:52)
[2021-03-19] MEDS: PANTOPRAZOLE SODIUM 40 MG/VIAL IV SCH (08:10)
[2021-03-19 08:18] LABS: BG BASE EXCESS 0.3 mmol/L (-2.0-2.0); BG CARBOXYHEMOGLOBIN 0.2 % (0.5-1.5); BG DEOXYHEMOGLOBIN 1.3 % (0.0-5.0); BG FRACTION INSPIRED OXYGEN 30; BG HCO3 ACT 23.5 mmol/L (22.0-26.0); BG METHEMOGLOBIN 0.4 % (0.0-1.5); BG OXYGEN SATURATION 98.7 % (92.0-98.5); BG OXYHEMOGLOBIN 98.1 % (94.0-97.0); BG PCO2 32.7 mmHg (35.0-45.0); BG PH 7.475 (7.350-7.450); BG PO2 135.1 mmHg (75.0-100.0); BG SAMPLE SITE RIGHT RADIAL; BG TOTAL HEMOGLOBIN 9.4 g/dL (12.0-18.0); BG VENT MODE VENT - AC
[2021-03-19] MEDS ORDERED: ENOXAPARIN 80MG/0.8ML SYR SUBCUT SCH (09:00)
[2021-03-19 10:15] LABS: NUCLEATED RED BLOOD CELLS 2 /100 WBC; PLATELET ESTIMATE NORMAL
[2021-03-19] MEDS: INSULIN GLARGINE UD 100 UNITS/ML SYR SUBCUT SCH (10:42)
[2021-03-19] MEDS: MIDODRINE HCL 2.5MG TABLET PO SCH ×2 (13:00→17:36)
== END 2021-03-19 22:26 | disposition short-term general hospital (02) | DRG 870 ==
LOC: ER 07:40 → SUPCPDRO 09:57 → CVICU 09:59 → EDBEDREQ 10:06 → EDBEDREQTM 10:06 → ENRESERV 10:54
PROVIDERS: ADMIT Internal Medicine; ATTEND Internal Medicine
PROC: 5A1955Z Respiratory Ventilation, Greater than 96 Consecutive Hours (ICD-10-PCS; principal; 2021-03-08)
PROC: 0BH17EZ Insertion of Endotracheal Airway into Trachea, Via Natural or Artificial Opening (ICD-10-PCS; 2021-03-08)
PROC: 5A1D70Z Performance of Urinary Filtration, Intermittent, Less than 6 Hours Per Day (ICD-10-PCS; 2021-03-10)
PROC: 5A1D70Z Performance of Urinary Filtration, Intermittent, Less than 6 Hours Per Day (ICD-10-PCS; 2021-03-12)
PROC: 5A1D70Z Performance of Urinary Filtration, Intermittent, Less than 6 Hours Per Day (ICD-10-PCS; 2021-03-13)
PROC: 06HY33Z Insertion of Infusion Device into Lower Vein, Percutaneous Approach (ICD-10-PCS; 2021-03-15)
PROC: B54BZZA Ultrasonography of Right Lower Extremity Veins, Guidance (ICD-10-PCS; 2021-03-15)
PROC: 05HY33Z Insertion of Infusion Device into Upper Vein, Percutaneous Approach (ICD-10-PCS; 2021-03-15)
PROC: B54MZZA Ultrasonography of Right Upper Extremity Veins, Guidance (ICD-10-PCS; 2021-03-15)
PROC: 5A1D70Z Performance of Urinary Filtration, Intermittent, Less than 6 Hours Per Day (ICD-10-PCS; 2021-03-15)
PROC: 5A1D70Z Performance of Urinary Filtration, Intermittent, Less than 6 Hours Per Day (ICD-10-PCS; 2021-03-15)
PROC: 30233N1 Transfusion of Nonautologous Red Blood Cells into Peripheral Vein, Percutaneous Approach (ICD-10-PCS; 2021-03-16)
PROC: 5A1D70Z Performance of Urinary Filtration, Intermittent, Less than 6 Hours Per Day (ICD-10-PCS; 2021-03-17)
PROC: 5A1D70Z Performance of Urinary Filtration, Intermittent, Less than 6 Hours Per Day (ICD-10-PCS; 2021-03-19)
DX: A41.9 Sepsis, unspecified organism (principal); J96.01 Acute respiratory failure with hypoxia; J18.9 Pneumonia, unspecified organism; R65.21 Severe sepsis with septic shock; I21.A1 Myocardial infarction type 2; N18.6 End stage renal disease; I63.9 Cerebral infarction, unspecified; G92 Toxic encephalopathy; I50.33 Acute on chronic diastolic (congestive) heart failure; E43 Unspecified severe protein-calorie malnutrition; C79.89 Secondary malignant neoplasm of other specified sites; C56.2 Malignant neoplasm of left ovary; E87.1 Hypo-osmolality and hyponatremia; C18.9 Malignant neoplasm of colon, unspecified; E87.4 Mixed disorder of acid-base balance; I13.2 Hypertensive heart and chronic kidney disease with heart failure and with stage 5 chronic kidney disease, or end stage renal disease; I82.412 Acute embolism and thrombosis of left femoral vein; I47.2 Ventricular tachycardia; Z51.5 Encounter for palliative care; E87.5 Hyperkalemia; I25.10 Atherosclerotic heart disease of native coronary artery without angina pectoris; F32.9 Major depressive disorder, single episode, unspecified; G89.29 Other chronic pain; K21.9 Gastro-esophageal reflux disease without esophagitis; M54.5 Low back pain; D64.9 Anemia, unspecified; E03.9 Hypothyroidism, unspecified; E11.22 Type 2 diabetes mellitus with diabetic chronic kidney disease; E11.319 Type 2 diabetes mellitus with unspecified diabetic retinopathy without macular edema; E11.40 Type 2 diabetes mellitus with diabetic neuropathy, unspecified; L89.626 Pressure-induced deep tissue damage of left heel; L89.616 Pressure-induced deep tissue damage of right heel; E11.51 Type 2 diabetes mellitus with diabetic peripheral angiopathy without gangrene; E83.52 Hypercalcemia; L89.156 Pressure-induced deep tissue damage of sacral region; E87.6 Hypokalemia; I48.0 Paroxysmal atrial fibrillation; I49.3 Ventricular premature depolarization; K74.60 Unspecified cirrhosis of liver; Z78.1 Physical restraint status; Z89.429 Acquired absence of other toe(s), unspecified side; Z90.710 Acquired absence of both cervix and uterus; Z98.84 Bariatric surgery status; Z99.2 Dependence on renal dialysis; Z90.49 Acquired absence of other specified parts of digestive tract; Z92.21 Personal history of antineoplastic chemotherapy
CPT/HCPCS: 36415; 36600; 70551; 71045; 71250; 76937; 80048; 80053; 80061; 80202; 80305; 82040; 82140; 82375; 82550; 82553; 82607; 82746; 82805; 82962; 83036; 83540; 83550; 83605; 83735; 83970; 84100; 84132; 84134; 84145; 84439; 84443; 84484; 85025; 86850; 86900; 86920; 87070; 87077; 87186; 93005; 93306; 93923; 93970; 94002; 94003; 94640; 99291; A6261; C1725; C9113; J0282; J0885; J1650; J1815; J2370; J2430; J2543; J2704; J3010; J3370; J3480; J3490; J7030; J7040; J7050; J7060; J7070; P9016

== ENCOUNTER 2021-04-28 13:51 | Emergency (ER) | payer MEDICARE, OTHER, MEDICAID ==
[~2021-04-28] VITALS: Ht 157.5 cm; Wt 50.0 kg
[~2021-04-28 13:51] MED LIST changes: +CINA30 PO; +FURO40TA5 MT; +LEVO100T9 PO; +SIMV-43 PO; +THIO300C PO
[2021-04-28] MEDS ORDERED: SODIUM CHLORIDE 0.9% 1,000 ML IV ONE (14:00)
[2021-04-28 15:22] LABS: BASOPHILS % 0.5 % (0.0-2.0); EOSINOPHILS % 0.4 % (0.0-5.0); HEMATOCRIT. 24.6 % (36.0-48.0); HEMOGLOBIN. 8.3 g/dL (12.0-16.0); LYMPHOCYTES % 7.1 % (20.0-50.0); MEAN CORPUSCULAR HEMOGLOBIN 28.3 pg (28.0-32.0); MEAN CORPUSCULAR VOLUME 83.5 fL (81.0-99.0); MEAN PLATELET VOLUME 6.9 fl (7.4-10.4); MONOCYTES % 4.5 % (2.0-8.0); NEUTROPHILS % 87.5 % (40.0-76.0); PLATELET 467 x1000/uL (130-400); RED BLOOD CELL COUNT 2.95 mill/uL (4.2-5.4); RED CELL DISTRIBUTION WIDTH 17.6 % (11.6-14.6)
[2021-04-28 15:27] LABS: CHLORIDE 99 mEq/L (98-107)
[2021-04-28] MEDS ORDERED: VANCOMYCIN 1 G PREMIX 200 ML IV ONE (16:30)
[2021-04-28] MEDS ORDERED: PIPERACILLIN/TAZ 3.375G PREMIX 50 ML IV ONE (16:30)
[2021-04-28 20:00] VITALS: BP 137/58
== END 2021-04-28 20:51 | disposition short-term general hospital (02) ==
LOC: ER 14:32
DX: R55 Syncope and collapse (principal); R94.31 Abnormal electrocardiogram [ECG] [EKG]; D72.829 Elevated white blood cell count, unspecified; L89.159 Pressure ulcer of sacral region, unspecified stage; I95.9 Hypotension, unspecified; Z90.49 Acquired absence of other specified parts of digestive tract; Z90.710 Acquired absence of both cervix and uterus
CPT/HCPCS: 36415; 71045; 80053; 83605; 83880; 84484; 85025; 87040; 93005; 96361; 96365; 96375; 99285; J2543; J3370; J7030